=== PATIENT | male | born 1945 | race Caucasian/White ===

== ENCOUNTER → 2017-06-17 | Outpatient (CLI) | payer OTHER | LOC: BHLMT 14:00 | PROVIDERS: ATTEND Internal Medicine | DX: I25.10 Atherosclerotic heart disease of native coronary artery without angina pectoris (principal); R06.00 Dyspnea, unspecified | CPT/HCPCS: 93306-PO ==

== ENCOUNTER 2017-07-29 12:18 | Day surgery (SDC) | payer OTHER ==
[2017-07-29] MEDS ORDERED: FAMOTIDINE 20 MG TAB PO ONE (12:21)
[2017-07-29] MEDS ORDERED: NITROGLYCERIN 0.4 MG BTL SL PRN (12:21)
[2017-07-29] MEDS ORDERED: DIAZEPAM 5 MG TAB PO ONE (12:21)
[2017-07-29] MEDS ORDERED: NS 1,000 ML IV SCH (12:21)
[2017-07-29] MEDS ORDERED: ASPIRIN EC 325 MG TAB PO ONE (12:21)
[2017-07-29] MEDS ORDERED: diphenhydrAMINE 25 MG CAP PO ONE (12:21)
[2017-07-29] MEDS ORDERED: ACETAMINOPHEN 325 MG TAB PO PRN (12:21)
[2017-07-29] MEDS ORDERED: TEMAZEPAM 15 MG CAP PO PRN (12:21)
--- NOTE | 2017-07-29 12:45 | CPEKG ---
Heart Rate: 73 RR Interval: 822 P-R Interval: 204 QRSD Interval: 176 QT Interval: 452 QTC Interval: 499 P [place]: 61 QRS [place]: -68 T Wave [place]: 118 EKG Severity - ABNORMAL ECG - EKG Impression: ATRIAL-SENSED VENTRICULAR-PACED COMPLEXES Electronically Signed By: Kashif Knox 29-Jul-2017 13:16:53
[2017-07-29 12:58] LABS: % IMMATURE GRANULYOCYTES 0.1 % (0.0-1.1); ABSOLUTE IMMATURE GRANULOCYTES 0.01 10^3/uL (0.00-0.10); ADD DIFF? NO; ADD MORPH? NO; ADD SCAN? NO; ATYPICAL LYMPHOCYTE FLAG 0 (0-99); FRAGMENT RBC FLAG 0 (0-99); HEMATOCRIT 41.4 % (40.0-51.0); HEMOGLOBIN 14.2 g/dL (13.7-17.5); LEFT SHIFT FLG 0 (0-99); LIPEMIA HEMOLYSIS FLAG 90 (0-99); MEAN CELL HEMOGLOBIN 29.5 pg (27.9-34.1); MEAN CELL HEMOGLOBIN CONCENTR. 34.3 g/dL (32.4-36.7); MEAN CELL VOLUME 85.9 fL (81.5-99.8); MEAN PLATELET VOLUME 11.3 fL (8.7-11.7); PLATELET CLUMPS FLAG 0 (0-99); PLATELET COUNT 175 10^3/uL (150-400); RED BLOOD CELL COUNT 4.82 10^6/uL (4.40-6.38); RED CELL DISTRIBUTION WIDTH 13.6 % (11.5-15.2)
[2017-07-29] MEDS ORDERED: LIDOCAINE 1% 300 MG/30 ML SDV ONE (13:00)
[2017-07-29] MEDS ORDERED: IOPAMIDOL (ISOVUE-370) 150 ML BTL IV ONE ×2 (13:01→14:40)
[2017-07-29] MEDS ORDERED: MIDAZOLAM 2 MG/2 ML VIAL ONE (13:01)
[2017-07-29] MEDS ORDERED: fentaNYL 100 MCG/2 ML INJ ONE (13:01)
[2017-07-29 13:11] LABS: INR 1.02 (0.83-1.16); PROTIME(PATIENT) 13.3 SEC (12.0-15.0)
[2017-07-29 13:12] LABS: APTT 26.3 SEC (23.0-38.0)
[2017-07-29 13:15] LABS: ALANINE AMINOTRANSFERASE 38 IU/L (21-72); ALBUMIN 4.2 g/dL (3.5-5.0); ALKALINE PHOSPHATASE 68 IU/L (38-126); ANION GAP 11 mEq/L (8-16); ASPARTATE AMINOTRANSFERASE 29 IU/L (17-59); BILIRUBIN,TOTAL 0.6 mg/dL (0.1-1.4); CALCIUM 9.9 mg/dL (8.5-10.4); CARBON DIOXIDE 26 mEq/l (22-31); CHLORIDE 98 mEq/L (97-110); CHOLESTEROL 112 mg/dL (140-220); CHOLESTEROL/HDL RATIO 2.67 RATIO (1.00-4.97); GLOMERULAR FILTRATION RATE > 60; GLUCOSE 154 mg/dL (70-100); HIGH DENSITY LIPOPROTEIN 42 mg/dL (40-65); LDL/HDL RATIO 0.76 RATIO (1.00-3.64); LOW DENSITY LIPOPROTEIN 32 mg/dL (80-100); MAGNESIUM 1.8 mg/dL (1.6-2.3); NON-HIGH DENSITY LIPOPROTEIN 70 mg/dL (90-129); POTASSIUM 4.6 mEq/L (3.5-5.2); SODIUM 135 mEq/L (134-144); TOTAL PROTEIN 7.1 g/dL (6.3-8.2); TRIGLYCERIDE 192 mg/dL (40-150); VERY LOW DENSITY LIPOPROTEINS 38 mg/dL (8-25)
--- NOTE | 2017-07-29 13:19 | PDHPUP ---
History & Physical Update H&P update statement: This history and physical update is based on an assessment of the patient which was completed after admission or registration (within 24 hours), but prior to the surgery/procedure. H&P update: H&P reviewed & patient examined, no change in patient's condition since H&P completed
--- NOTE | 2017-07-29 13:20 | PDPROPOC ---
Sedation Plan of Care Sedation Plan of Care: vital signs stable, mental status noted, patient educated of risks, benefits, alternatives, patient can tolerate sedation ASA Classification: ASA 2 Planned drugs: fentanyl, midazolam Mallampati Score: Class 2 Mallampati Reference Image: Patient passed 3-3-2 rule?: Yes
[2017-07-29] MEDS ORDERED: ONDANSETRON 4 MG/2 ML VIAL IVP PRN (15:15)
[2017-07-29] MEDS ORDERED: HYDROCODONE/APAP 5/325 TAB PO PRN (15:15)
[2017-07-29] MEDS ORDERED: ATROPINE SULFATE 1 MG/10 ML SYR IVP PRN (15:15)
--- NOTE | 2017-07-29 15:22 | PDDXCAT ---
Diagnostic Cath Note - . Date: 07/29/17 Credit Control Officer: Óscar Indication: other (Severe CAD with prior PCIs and prior CABG, declining LV systolic function, and NYHA class II to III CHF symptoms.) - Procedure Access: right groin Procedure: left heart catheterization, coronary angiography, left ventriculogram , vein graft injection, MARTEL injection, right heart catheterization, other ( Aortic root angiogram) - Materials Left Heart Cath size: 6F Left Heart Cath materials: standard multipack (JL4, JR4, pigtail), Campbell's R, other (Left coronary bypass catheter) - Findings-Left Heart Catheterization LM: Normal. LAD: Fluoroscopy demonstrates a lengthy, previously stented segment of the LAD spanning from proximal to mid-vessel. Angiography reveals severe restenosis within the distal part of the stented segment and total occlusion of the mid- LAD at the termination of the stented segment. LCX: Totally occluded at its origin. RCA: Flouroscopy reveals a lengthy, previously stented segment from the proximal to mid-vessel. Angiography demonstrates mild disease proximally with total occlusion in the mid-RCA. rSV) Sequential SVG to diagonal and obtuse marginal branch patent. The diagonal branch is a very small vessel. The graft terminates on a moderate to large-size, bifurcating obtuse marginal branch wiht mild disease and supplies collaterals to the RCA territory. 2) Saphenous Vein Graft to Ramus Intermedius: Could not be located and did not appear on the aortic root angiogram. 3) Saphenous Vein Graft to PDA: Could not be located and did not appear on the aortic root angiogram. MARTEL: MARTEL to LAD patent. However, distal LAD has a stenosis of at least 80% just prior to its bifurcation at the apex. It is a very small caliber vessel at this point. EDP: 24 mmHg LVEF: 35% Wall motion: Severe hypokinesis of the mid to distal anterior, apical, and apical inferior wall segments - Findings-Right Heart Catheterization RA: 14 mmHg RV: 38/12 mmHg PA: 42/20/30 mmHg O2 sat 73.0% PAOP: 24 mmHg AO: 130/70/92 mmHg O2 sat 96.5% Complications: None Estimated blood loss: <50ml Closure method: Angioseal Assessment: 1) Ischemic cardiomyopathy with moderate to severely reduced left ventricular systolic function. 2) Severe [place] multivessel CAD. 3) Patent MARTEL to LAD graft with distal disease in the LAD. 4) Patent sequential SVG to diagonal and obtuse marginal branch. 5) Presumed occlusion of separate SVGs to ramus intermedius and PDA. Plan: He has little if any options for further surgical or percutaneous revascularization. I am not confident that a stent could be delivered to the distal LAD successfully. Will maximize his medical therapy and consider nuclear perfusion imaging with delayed thallium images for viability. Will also arrange for the patient to be seen by our heart failure specialist.
== END 2017-07-29 19:33 | disposition home or self-care (01) ==
LOC: FCATH 12:18
PROVIDERS: ATTEND Internal Medicine Interventional Cardiology
PROC: B2131ZZ Fluoroscopy of Multiple Coronary Artery Bypass Grafts using Low Osmolar Contrast (ICD-10-PCS; principal; 2017-07-29)
PROC: 4A023N8 Measurement of Cardiac Sampling and Pressure, Bilateral, Percutaneous Approach (ICD-10-PCS; principal; 2017-07-29)
PROC: B2151ZZ Fluoroscopy of Left Heart using Low Osmolar Contrast (ICD-10-PCS; principal; 2017-07-29)
DX: I25.10 Atherosclerotic heart disease of native coronary artery without angina pectoris (principal); I25.5 Ischemic cardiomyopathy; I51.9 Heart disease, unspecified; T82.855A Stenosis of coronary artery stent, initial encounter; E78.5 Hyperlipidemia, unspecified; I10 Essential (primary) hypertension; I49.5 Sick sinus syndrome; E11.9 Type 2 diabetes mellitus without complications; K21.9 Gastro-esophageal reflux disease without esophagitis; Z95.5 Presence of coronary angioplasty implant and graft; Z95.1 Presence of aortocoronary bypass graft; Z95.0 Presence of cardiac pacemaker
CPT/HCPCS: C1760; J1644; J2250; J3010; Q9967

== ENCOUNTER 2017-10-08 11:44 | Observation (INO) | payer OTHER ==
[2017-10-08] MEDS ORDERED: DIAZEPAM 5 MG TAB PO ONE (11:52)
[2017-10-08] MEDS ORDERED: diphenhydrAMINE 25 MG CAP PO ONE (11:52)
[2017-10-08] MEDS ORDERED: BACITRACIN IRRIGATION/NS 50,000 UNITS/1,000 ML BTL IRR ONE (11:52)
[2017-10-08] MEDS ORDERED: ceFAZolin 2 GM/SWFI 2 GM/20 ML SYR IVP ONE (11:52)
[2017-10-08] MEDS ORDERED: NS 1,000 ML IV ONE (11:52)
[2017-10-08] MEDS ORDERED: MIDAZOLAM 2 MG/2 ML VIAL ONE ×2 (12:19→15:02)
[2017-10-08] MEDS ORDERED: LIDO/EPI 1% **for epidural** 30 ML SDV ONE (12:19)
[2017-10-08] MEDS ORDERED: LIDOCAINE 1% 300 MG/30 ML SDV ONE (12:19)
[2017-10-08] MEDS ORDERED: fentaNYL 100 MCG/2 ML INJ ONE ×2 (12:19→15:01)
[2017-10-08] MEDS ORDERED: BUPIVACAINE 0.5% 30 ML SDV ONE (12:20)
[2017-10-08] MEDS ORDERED: IOPAMIDOL (ISOVUE-300) 150 ML BTL ONE ×2 (12:20→15:00)
[2017-10-08 12:44] LABS: % IMMATURE GRANULYOCYTES 0.1 % (0.0-1.1); ABSOLUTE IMMATURE GRANULOCYTES 0.01 10^3/uL (0.00-0.10); ADD DIFF? NO; ADD MORPH? NO; ADD SCAN? NO; ATYPICAL LYMPHOCYTE FLAG 0 (0-99); FRAGMENT RBC FLAG 20 (0-99); HEMOGLOBIN 13.4 g/dL (13.7-17.5); LEFT SHIFT FLG 0 (0-99); LIPEMIA HEMOLYSIS FLAG 90 (0-99); MEAN CELL HEMOGLOBIN 29.6 pg (27.9-34.1); MEAN CELL HEMOGLOBIN CONCENTR. 35.3 g/dL (32.4-36.7); MEAN CELL VOLUME 84.1 fL (81.5-99.8); MEAN PLATELET VOLUME 10.6 fL (8.7-11.7); PLATELET CLUMPS FLAG 10 (0-99); PLATELET COUNT 194 10^3/uL (150-400); RED BLOOD CELL COUNT 4.52 10^6/uL (4.40-6.38); RED CELL DISTRIBUTION WIDTH 13.9 % (11.5-15.2)
[2017-10-08 13:00] LABS: ANION GAP 12 mEq/L (8-16); CALCIUM 9.3 mg/dL (8.5-10.4); CARBON DIOXIDE 24 mEq/l (22-31); CHLORIDE 105 mEq/L (97-110); CREATININE 0.8 mg/dL (0.7-1.3); GLOMERULAR FILTRATION RATE > 60; GLUCOSE 188 mg/dL (70-100); INR 0.97 (0.83-1.16); POTASSIUM 4.6 mEq/L (3.5-5.2); PROTIME(PATIENT) 13.1 SEC (12.0-15.0); SODIUM 141 mEq/L (134-144)
--- NOTE | 2017-10-08 16:51 | CPEKG ---
Heart Rate: 69 RR Interval: 870 P-R Interval: 212 QRSD Interval: 182 QT Interval: 476 QTC Interval: 510 P [place]: 133 QRS [place]: -54 T Wave [place]: 147 EKG Severity - ABNORMAL ECG - EKG Impression: ATRIAL-SENSED VENTRICULAR-PACED COMPLEXES Electronically Signed By: Vince Pelayo 08-Oct-2017 23:17:36
[2017-10-08] MEDS: INSULIN LISPRO 100 UNIT/ML SC SCH (18:07)
[2017-10-08] MEDS: metFORMIN HCL 500 MG TAB PO SCH (18:19)
--- NOTE | 2017-10-08 20:01 | CPIP ---
[f rep st] INVASIVE CARDIAC PROCEDURE DATE OF PROCEDURE: 10/08/2017 INDICATIONS: The patient is a 71-year-old male with a history of coronary artery disease and ischemi c cardiomyopathy with previous bypass surgery. He has a dual-chamber pacemaker in place. He paces 1 00% of the time in the right ventricle. He has an ischemic cardiomyopathy with an ejection fraction of 25%-30% and [place] [employer] Association functional class 2 congestive heart failure. He is referre d for upgrade of existing dual-chamber St. Frandy pacemaker to a biventricular ICD. PROCEDURE: Upgrade of a [employer]. Frandy pacemaker to a biventricular implantable cardioverter defibrillator . TECHNIQUE: Following informed consent, in the fasting state, the patient was brought to the cardiac catheterization laboratory. The left chest was prepped and draped in the usual sterile fashion. The skin overlying the previously placed pacemaker was infiltrated with 2% lidocaine. Immediately prior to making skin incision, 2 g of Ancef were administered. A 4 cm incision was made immediately below the previous incision. Using blunt and sharp dissection, the pacemaker was identified. The capsule was opened sharply and the pacemaker delivered from the fi eld. At this point, a venogram was performed. This identified a widely patent axillary subclavian s ystem. Using 2 separate sticks in the modified Seldinger technique, access was gained to the axillar y vein at the level of the first rib. Two individual 0.035 J-wires were then positioned. Using the 1st J-wire, a 7-Serbian safe sheath was placed. This allowed us to safely place the right ventricular lead under fluoroscopy. The lead was screwed in place, the sheath torn away and the lead secured to the ICD pocket floor using 0 Ethibond. The lead was tested with adequate capture and sensing. Using the remaining J-wire, the coronary sinus guide catheter was brought to the field. We advanced the coronary sinus guide catheter under fluoroscopy to the ostium of the coronary sinus, which was ea sily cannulated. A 0.035 J-wire was then passed deep into the coronary sinus and the coronary sinus was deeply intubated. The J-wire was then removed. A balloon tipped catheter was then advanced with in the guide catheter. A venogram was performed of the coronary sinus, which identified a paucity of available veins. There was, however, a suitable high anterolateral vein. At this point, I attempted to wire this anterolat eral vein using a Mailman wire. I was unsuccessful. The wire would not pass the midportion of the ve in. A 45-degree subselector and a 90-degree subselector were then used. Again, I was not able to pa ss the midportion of the coronary sinus. I again performed a nonselective venogram. This identified dye staining in this region. It was thought that there may have been a small dissection that was lo calized to the midportion of the coronary sinus. The guide catheter was pulled way back to the ostium of the coronary sinus. Multiple attempts were m mao for further wiring the coronary sinus; however, we were not able to pass midportion. At this poi nt, the procedure was abandoned. The existing right ventricular lead was then disconnected from the patient's pacemaker as was the atrial lead. The right ventricular lead was capped. The new biventri cular ICD was brought to the field. All leads were identified by serial number and affixed to the he ader according to member certification manager guidelines. A pin was placed in the CS port. The device and the redu ndant portions of all leads were then placed in the pocket and the pocket was closed with 3 layers of interrupted suture using 2-0 and 3-0 Vicryl and finally running Stratafix for the skin. Steri-Strip s and a dry dressing were applied. COMPLICATIONS: The procedure was complicated by localized midcoronary sinus dissection which prohibi bassem completion of the procedure. DISPOSITION: The patient will be admitted to the hospital and monitored overnight. We will plan to bring him back in 3-4 weeks for another attempt at placing the CS lead. /[id number]/MODL
[2017-10-08] MEDS ORDERED: EZETIMIBE 10 MG TAB PO SCH (21:00)
[2017-10-08] MEDS ORDERED: INSULIN GLARGINE 100 UNITS/ML SYRINGE SC SCH (21:00)
[2017-10-08] MEDS ORDERED: ASPIRIN EC 81 MG TAB PO SCH (21:00)
[2017-10-08] MEDS: BENAZEPRIL HCL 20 MG TAB PO SCH (21:09)
[2017-10-08] MEDS: OXYCODONE/APAP 5/325 TAB PO PRN ×2 (21:10→22:09)
[2017-10-09 05:53] VITALS: O2SAT 93
[2017-10-09 08:36] VITALS: BP 131/83; PULSE 75; RESP 17; TEMP 97.7
[2017-10-09] MEDS ORDERED: METOPROLOL TARTRATE 25 MG TAB PO SCH (09:00)
[2017-10-09] MEDS ORDERED: SERTRALINE HCL 100 MG TAB PO SCH (09:00)
[2017-10-09] MEDS ORDERED: PANTOPRAZOLE SODIUM 40 MG TAB PO SCH (09:00)
[2017-10-09] MEDS: INSULIN LISPRO 100 UNIT/ML SC SCH ×2 (09:30→13:02)
[2017-10-09] MEDS: BENAZEPRIL HCL 20 MG TAB PO SCH (09:32)
[2017-10-09] MEDS: metFORMIN HCL 500 MG TAB PO SCH (09:33)
--- NOTE | 2017-10-09 11:32 | ASMTCASEMG ---
Living Arrangements What is your living Answers: With Spouse arrangement? Who do you live with? Type Of Residence What kind of residence do Answers: House you live in? Discharge Plan Comments Coordination Status Comments Notes: CM spoke w/ RANJANA Gibson regarding d/c POC. Pt is a 71 y/o man admitted for cardiomyop/CAD. Anticipates that pt will d/c independent w/ supportive when medically stable. CM available for changes. Plan: Independent Date Signed: 10/09/2017 11:32 AM Electronically Signed By:ALYSHA Osuna
--- NOTE | 2017-10-09 13:57 | ASDISCHSUM ---
Discharge Information Plan Status:Home with No Needs Medically Cleared to Leave:10/08/2017 Discharge Date:10/09/2017 01:47 PM CM D/C Disposition: ADT D/C Disposition:Home, Routine, Self-Care Projected Discharge Date:10/09/2017 12:00 AM Transportation at D/C: Discharge Delay Reason: Follow-Up Date:10/09/2017 12:00 AM Discharge Slot: Final Diagnosis: Placement Information Patient Contact Information Contact Name:AGUILA Relationship: Address:[address] City:[place] Phone: State/Zip Code:[place] [address] Email: Financial Information Financial Class: Primary Plan Desc:MEDICARE OUTPATIENT Primary Plan Number:[id number] Secondary Plan Desc:[facility] Secondary Plan Number:[id number] Assessment Information [facility] Initial CM Assessment Living Arrangements What is your living Answers: With Spouse arrangement? Who do you live with? Type Of Residence What kind of residence do Answers: House you live in? Discharge Plan Comments Coordination Status Comments Notes: CM spoke w/ RANJANA Gibson regarding d/c POC. Pt is a 71 y/o man admitted for cardiomyop/CAD. Anticipates that pt will d/c independent w/ supportive when medically stable. CM available for changes. Plan: Independent Date Signed: 10/09/2017 11:32 AM Electronically Signed By:ALYSHA Osuna Intervention Information Intervention Type:*ALIA-Signed Date of Service:10/09/2017 09:39 AM Patient Type:Observation Staff Member:Chelle Taylor Hours: Discipline: Severity: Comment:
[2017-10-09] MEDS ORDERED: ATORVASTATIN CALCIUM 40 MG TAB PO SCH (21:00)
--- NOTE | 2017-10-10 03:32 | GDS ---
[f rep st] DISCHARGE SUMMARY ADMIT DIAGNOSES: 1. Ischemic cardiomyopathy with ejection fraction of 25% to 30% and [place] Heart Association class ification class II congestive heart failure. 2. Coronary artery disease. 3. Planned upgrade of existing dual-chamber St. Frandy pacemaker to a biventricular implantable cardio verter defibrillator. DISCHARGE DIAGNOSES: 1. Status post successful upgrade of St. Frandy pacemaker to a biventricular implantable cardioverter defibrillator with no complications. 2. Coronary artery disease. 3. Cardiomyopathy. 4. Status post previous bypass surgery. COURSE OF HOSPITALIZATION: This is a 71-year-old male, who has a history of coronary artery disease with previous bypass surgery. He has ischemic cardiomyopathy with an ejection fraction of 25% to 30% . He has a dual-chamber pacemaker in place, which paces 100% of the time in the right ventricle. It is planned to upgrade the existing dual-chamber pacemaker to a biventricular ICD. He was taken to [facility] where Dr. Wesley Corrigan successfully upgraded the [employer]. Frandy pacemaker to a biventricular IC D with no complications. He was then taken to overnight care in the PCU where he has done well. Tel emetry shows paced rhythm. Pacemaker was evaluated and functioning properly. He was taken for a [facility] st x-ray showed showing normal lead placement. At this time, he currently is stable for discharge. DISCHARGE MEDICATIONS: He will go home on aspirin 81 mg daily, Lantus 25 units at bedtime, Prilosec 20 mg daily, Zocor 80 mg at bedtime, Zetia 10 mg at bedtime, Lotensin 40 mg twice daily, Zoloft 100 m g daily, melatonin 5 mg at bedtime, insulin lispro 25-30 units subcu 3 times a day with meals, Trulic ity 1.5 mg subcu, Lopressor 25 mg daily, Cialis 20 mg daily as needed, metformin 1000 mg twice daily. ALLERGIES: He has no known drug allergies. PHYSICAL EXAMINATION: VITAL SIGNS: Blood pressure 131/83, heart rate 75, temperature 36.5 Celsius. EKG shows paced rhythm. CARDIOVASCULAR: Heart rate regular. No murmurs, rubs, or gallops. RESPIR ATORY: Lungs sounds are clear to auscultation. No wheezes, rales, or rhonchi. CHEST: Left pacemak er site is intact with pressure dressing in place. Minimal old bleed noted. No ecchymosis or tender ness at pacer site. EXTREMITIES: No peripheral edema. Pulses 2+ bilaterally. DISCHARGE PLAN: He will discharge home with followup in 1 week of his device and wound check. He wi ll follow up with Dr. Corrigan in 2-3 weeks. At this time, he currently is stable for discharge. /[id number]/MODL
--- NOTE | 2017-10-10 08:17 | CPEKG ---
Heart Rate: 68 RR Interval: 882 P-R Interval: 184 QRSD Interval: 180 QT Interval: 472 QTC Interval: 503 P [place]: 0 QRS [place]: -71 T Wave [place]: 132 EKG Severity - ABNORMAL ECG - EKG Impression: ATRIAL-SENSED VENTRICULAR-PACED COMPLEXES EKG Impression: NONSPECIFIC IVCD WITH LAD EKG Impression: LVH WITH SECONDARY REPOLARIZATION ABNORMALITY Electronically Signed By: Vince Pelayo 10-Oct-2017 20:56:35
== END 2017-10-09 13:47 | disposition home or self-care (01) ==
LOC: FCATH 11:44 → F2W 16:17
PROVIDERS: ADMIT Internal Medicine Cardiovascular Disease; ATTEND Internal Medicine Cardiovascular Disease
PROC: 02HL3KZ Insertion of Defibrillator Lead into Left Ventricle, Percutaneous Approach (ICD-10-PCS; principal; 2017-10-08)
PROC: 0JPT0PZ Removal of Cardiac Rhythm Related Device from Trunk Subcutaneous Tissue and Fascia, Open Approach (ICD-10-PCS; principal; 2017-10-08)
PROC: 0JH608Z Insertion of Defibrillator Generator into Chest Subcutaneous Tissue and Fascia, Open Approach (ICD-10-PCS; principal; 2017-10-08)
DX: I25.5 Ischemic cardiomyopathy (principal); I25.10 Atherosclerotic heart disease of native coronary artery without angina pectoris; I49.5 Sick sinus syndrome; I50.22 Chronic systolic (congestive) heart failure; Z95.1 Presence of aortocoronary bypass graft; E11.9 Type 2 diabetes mellitus without complications; F03.90 Unspecified dementia, unspecified severity, without behavioral disturbance, psychotic disturbance, mood disturbance, and anxiety
CPT/HCPCS: 33225; 33233; 33249; 71010; 71020; 93005; 97165; 97535; C1769; C1777; C1882; C1893; G8987; G8988; J0690; J1815; J2250; J3010; Q9967

== ENCOUNTER 2017-10-29 11:30 | Observation (INO) | payer OTHER ==
[2017-10-29] MEDS ORDERED: ceFAZolin 2 GM/SWFI 2 GM/20 ML SYR IVP ONE (11:41)
[2017-10-29] MEDS ORDERED: DIAZEPAM 5 MG TAB PO ONE (11:41)
[2017-10-29] MEDS ORDERED: BACITRACIN IRRIGATION/NS 50,000 UNITS/1,000 ML BTL IRR ONE (11:41)
[2017-10-29] MEDS ORDERED: NS 1,000 ML IV ONE (11:41)
[2017-10-29] MEDS ORDERED: diphenhydrAMINE 25 MG CAP PO ONE (11:41)
--- NOTE | 2017-10-29 12:10 | CPEKG ---
Heart Rate: 78 RR Interval: 769 P-R Interval: 168 QRSD Interval: 180 QT Interval: 448 QTC Interval: 511 P [place]: 45 QRS [place]: -53 T Wave [place]: 139 EKG Severity - ABNORMAL ECG - EKG Impression: ATRIAL-SENSED VENTRICULAR-PACED RHYTHM Electronically Signed By: Sergio Ruiz 29-Oct-2017 14:25:21
[2017-10-29 12:20] LABS: PLATELET COUNT 164 10^3/uL (150-400)
[2017-10-29 12:29] LABS: INR 0.92 (0.83-1.16); PROTIME(PATIENT) 12.6 SEC (12.0-15.0)
[2017-10-29] MEDS ORDERED: fentaNYL 100 MCG/2 ML INJ ONE (13:22)
[2017-10-29] MEDS ORDERED: LIDOCAINE 1% 300 MG/30 ML SDV ONE (13:22)
[2017-10-29] MEDS ORDERED: MIDAZOLAM 2 MG/2 ML VIAL ONE ×2 (13:23→15:08)
[2017-10-29] MEDS ORDERED: BUPIVACAINE 0.5% 30 ML SDV ONE (13:23)
[2017-10-29] MEDS ORDERED: LIDO/EPI 1% **for epidural** 30 ML SDV ONE (13:23)
[2017-10-29] MEDS ORDERED: IOPAMIDOL (ISOVUE-300) 150 ML BTL ONE (13:44)
[2017-10-29] MEDS ORDERED: D50W 25 GM/50 ML SYR IVP PRN (15:36)
--- NOTE | 2017-10-29 16:10 | CPEKG ---
Heart Rate: 72 RR Interval: 833 P-R Interval: 204 QRSD Interval: 128 QT Interval: 444 QTC Interval: 486 P [place]: 34 QRS [place]: -71 T Wave [place]: -18 EKG Severity - ABNORMAL ECG - EKG Impression: ATRIAL-SENSED VENTRICULAR-PACED COMPLEXES Electronically Signed By: Sergio Ruiz 30-Oct-2017 13:16:41
[2017-10-29] MEDS: INSULIN REGULAR HUMAN 100 UNIT/ML SC SCH ×2 (17:38→21:36)
[2017-10-29] MEDS ORDERED: metFORMIN HCL 500 MG TAB PO SCH (18:00)
--- NOTE | 2017-10-29 18:25 | CPIP ---
[f rep st] INVASIVE CARDIAC PROCEDURE DATE OF PROCEDURE: 10/29/2017 INDICATIONS: The patient is 71 years old. He has a history of coronary artery disease and cardiomyo terrie related to his underlying CAD and probably right ventricular pacing. On October 08 we attemp bassem to upgrade his pacemaker to a biventricular ICD. Unfortunately, the coronary sinus lead was not able to be placed due to a localized dissection of the coronary sinus. He returns now for placement of the CS lead. PROCEDURE: Upgrade of a dual-chamber implantable cardioverter defibrillator to a biventricular impla ntable cardioverter defibrillator. TECHNIQUE: Following informed consent and in the fasting state, the patient was brought to the [facility] catheterization laboratory. Prophylactic antibiotics were administered prior to the procedure. T he left chest was prepped and draped in the usual sterile fashion and 2% lidocaine was infiltrated in to the skin overlying the existing ICD. Using a #10 blade, a 4 cm incision was made. Using blunt and sharp dissection, the ICD pocket was op ened and the existing device was removed from the pocket. The pocket was inspected and all bleeders were cauterized and an antibiotic-soaked sponge was placed in the pocket. A venogram was performed, easily identifying a widely patent axillary subclavian system. At this poi nt, a Cook needle was used to access the axillary vein, which allowed us to position a 0.035 J-wire. A 115-degree guide catheter was brought to the field, which was advanced under fluoroscopy into the right atrium. This allowed us to easily cannulate the coronary sinus and an angled Glidewire was pos itioned in the coronary sinus. The coronary sinus was then intubated with the guide catheter. A 90- degree subselector was brought to the field. This was advanced into the coronary sinus and a brief v enogram was performed. Using the 90 degree subselector, we were able to access a high lateral coronary sinus vein and a Mail man wire was delivered deep into the vein. This allowed us to position the coronary sinus lead deep into the lateral vein over a Mailman wire. At this point, the Mailman wire was removed and the finis alla wire was positioned. The introducer was then slid away and subsequently the guide catheter slid away. The coronary sinus lead was visualized and was noted to have excellent positioning and the le ad was secured to the ICD pocket floor. The lead was then tested with excellent capture and sensing and no diaphragmatic stimulation. At this point, the pocket was inspected. The pocket was irrigated with antibiotic-containing solutio n. The bleeders were cauterized and the new device brought to the field. The coronary sinus lead wa s then affixed to the header according to nautical instrument mechanic guidelines. The device was tested with excell ent capture and sensing in all leads. The device and the redundant portion of all leads were then pl aced in the pocket. The pocket was then infiltrated with D-Stat and closed initially with 2 layers o f interrupted suture using 2-0 and 3-0 Vicryl and finally running 3-0 Stratafix for the skin. Steri- Strips and a dry dressing were applied. The newly placed coronary sinus lead is a [employer] 1456Q, 86 cm lead, serial number [id number] . The right atrial lead was placed November 26, [address] 2088TC, 46 cm lead, se rial number [id number]. The right ventricular high-voltage lead is a [employer] 7122Q, 52 cm lead, serial number [id number], implanted October 08, 2017. The existing pulse generator is a [employer] [id number], serial number [id number], also implanted D 2016. Sensed P waves were 3.2 mV with lead impedance in the atrial lead of 400 ohms and a threshold of 1.25 V at 0.5 msec. The right ventricular lead sensed R-waves 11.9 mV with a lead impedance 450 ohms and a threshold 0.5 V at 0.5 msec. The newly placed coronary sinus lead R-waves were sensed at 21.7 mV, lead impedance of 493 ohms and a threshold 0.7 V at 0.5 msec with no diaphragmatic stimulation. COMPLICATIONS: None. DISPOSITION: The patient will be transferred to telemetry and monitored overnight. Anticipate disch arge in the morning. /[id number]/MODL
[2017-10-29] MEDS: BENAZEPRIL HCL 20 MG TAB PO SCH (20:39)
[2017-10-29] MEDS ORDERED: ATORVASTATIN CALCIUM 40 MG TAB PO SCH (21:00)
[2017-10-29] MEDS ORDERED: INSULIN GLARGINE 100 UNITS/ML SYRINGE SC SCH (21:00)
[2017-10-29] MEDS ORDERED: MELATONIN 3 MG TAB PO SCH (21:00)
[2017-10-29] MEDS ORDERED: NON-FORMULARY NEW DRUG (Simvastatin [Zocor] 80 MG) PO SCH (21:00)
[2017-10-29] MEDS ORDERED: ASPIRIN EC 81 MG TAB PO SCH (21:00)
[2017-10-29] MEDS ORDERED: NON-FORMULARY NEW DRUG (Melatonin [Melatonin 5 Mg] 5 MG) PO SCH (21:00)
[2017-10-29] MEDS ORDERED: EZETIMIBE 10 MG TAB PO SCH (21:00)
[2017-10-30 07:03] VITALS: TEMP 98.4
[2017-10-30] MEDS: INSULIN REGULAR HUMAN 100 UNIT/ML SC SCH ×2 (08:39→12:20)
[2017-10-30] MEDS: BENAZEPRIL HCL 20 MG TAB PO SCH (08:39)
[2017-10-30] MEDS ORDERED: NON-FORMULARY NEW DRUG (Omeprazole [Prilosec 20 Mg] 20 MG) PO SCH (09:00)
[2017-10-30] MEDS ORDERED: METOPROLOL TARTRATE 25 MG TAB PO SCH (09:00)
[2017-10-30] MEDS ORDERED: SERTRALINE HCL 100 MG TAB PO SCH (09:00)
[2017-10-30] MEDS ORDERED: PANTOPRAZOLE SODIUM 40 MG TAB PO SCH (09:00)
[2017-10-30 11:37] VITALS: BP 112/72; PULSE 75; RESP 18; O2SAT 92
--- NOTE | 2017-10-30 14:14 | ASDISCHSUM ---
Discharge Information Plan Status:Home with No Needs Medically Cleared to Leave:10/29/2017 Discharge Date:10/30/2017 12:35 PM CM D/C Disposition: ADT D/C Disposition:Home, Routine, Self-Care Projected Discharge Date:10/30/2017 12:00 AM Transportation at D/C: Discharge Delay Reason: Follow-Up Date:10/30/2017 12:00 AM Discharge Slot: Final Diagnosis: Placement Information Patient Contact Information Contact Name:AGUILA Relationship: Address:[address] City:[place] Phone: State/Zip Code:[place] [address] Email: Financial Information Financial Class: Primary Plan Desc:MEDICARE OUTPATIENT Primary Plan Number:[id number] Secondary Plan Desc:[place] [employer] Secondary Plan Number:[id number] Assessment Information Intervention Information Intervention Type:*ROJO-Signed Date of Service:10/30/2017 11:29 AM Patient Type:Observation Staff Member:Chelle Taylor Hours: Discipline: Severity: Comment:
--- NOTE | 2017-10-30 14:59 | GDS ---
[f rep st] DISCHARGE SUMMARY DISCHARGE DIAGNOSES: 1. Ischemic cardiomyopathy status post coronary sinus lead placement for biventricular pacing. 2. Previous implantable cardioverter defibrillator implantation. 3. Coronary artery disease with history of multiple percutaneous coronary interventions and coronary artery bypass graft. 4. Type 2 diabetes mellitus. 5. History of mild dementia. 6. Hypertension. 7. Systolic congestive heart failure. 8. Dyslipidemia. PROCEDURES: 1. On 10/29/2017, upgrade to dual-chamber implantable cardioverter defibrillator to a biventricular ICD with placement of coronary sinus lead. 2. Serial chest x-rays. PHYSICIANS: Dr. Corrigan. BRIEF HISTORY: Please see dictated H and P from our office for complete details. In brief. The marianela ent is a 71-year-old male with a history of sick of known CAD with previous stenting procedures and b ypass grafting, EF of 30%-35%, systolic CHF, sick sinus syndrome, hypertension and dyslipidemia who h ad ICD implantation earlier this month. Unfortunately, a coronary sinus lead was not able to be plac ed due to a small dissection flap in the main coronary sinus. He was brought back on 10/29/2017 for repeat attempt at placing a coronary sinus lead which was successful. On day of discharge, patient d enies any significant pain at pacemaker site. He has ambulated. PHYSICAL EXAM: VITAL SIGNS: On day of discharge, blood pressure 112/72, heart rate 75, respirations 18, O2 saturation 92% on room air. GENERAL: He is a very pleasant male in no apparent distress. H EENT: Normocephalic, atraumatic. Eyes are without scleral icterus. SKIN: Warm and dry. HEART: R egular rate and rhythm. LUNGS: Clear to auscultation. LABORATORY DATA: CBC with WBC 7.92, hemoglobin 13.4, hematocrit 38.5, platelet count 164. BMP with s odium 140, potassium 4.8, chloride 103, CO2 24, BUN 18, creatinine 0.8, glucose of 205. RESULTS PENDING: None. DIET: Cardiac diet recommended. ACTIVITY: Left arm precautions were reviewed. DISCHARGE MEDICATIONS: Please see med reconciliation for complete details. He is being discharged o n all his home medications with a hold placed on his metformin. This should be held for 48 hours. O therwise, he may continue his home Cialis, simvastatin 80 mg p.o. daily, sertraline, omeprazole, Lopr essor 25 mg p.o. daily, melatonin, furosemide 20 mg p.o. daily, insulin Humalog and Lantus, Zetia, Tr ulicity, benazepril and aspirin. FOLLOWUP INSTRUCTIONS: 1. Follow up with pacer clinic for next week. 2. Follow up with Dr. Corrigan for next week. /[id number]/MODL
[2017-11-01] MEDS ORDERED: Dulaglutide [Trulicity] 1.5 MG SQ SCH (09:00)
== END 2017-10-30 12:35 | disposition home or self-care (01) ==
LOC: FCATH 11:30 → F2W 14:37
PROVIDERS: ADMIT Internal Medicine Cardiovascular Disease; ATTEND Internal Medicine Cardiovascular Disease
PROC: B5161ZA Fluoroscopy of Right Subclavian Vein using Low Osmolar Contrast, Guidance (ICD-10-PCS; principal; 2017-10-29)
PROC: 02H63KZ Insertion of Defibrillator Lead into Right Atrium, Percutaneous Approach (ICD-10-PCS; principal; 2017-10-29)
DX: I25.5 Ischemic cardiomyopathy (principal); I25.10 Atherosclerotic heart disease of native coronary artery without angina pectoris; Z95.5 Presence of coronary angioplasty implant and graft; Z95.1 Presence of aortocoronary bypass graft; E11.9 Type 2 diabetes mellitus without complications; I11.0 Hypertensive heart disease with heart failure; I50.22 Chronic systolic (congestive) heart failure; E78.5 Hyperlipidemia, unspecified
CPT/HCPCS: 33249; 71010; 71020; 93005; A4649; C1769; C1900; J0690; J1815; J2250; J3010; Q9967

== ENCOUNTER → 2018-02-04 | Outpatient (CLI) | payer OTHER | LOC: BHLMT 10:00 | PROVIDERS: ATTEND Internal Medicine Cardiovascular Disease | DX: I42.9 Cardiomyopathy, unspecified (principal); I25.10 Atherosclerotic heart disease of native coronary artery without angina pectoris | CPT/HCPCS: 93306-PO ==